=== PATIENT | female | born 1985 | race Caucasian/White ===

== ENCOUNTER 2019-03-05 16:23 | Emergency (ER) | payer SELFPAY ==
[2019-03-05 16:34] VITALS: BP 104/74
[2019-03-05] MEDS ORDERED: IV NORMAL SALINE 1,000ML 1,000 ML IV ONE (16:45)
--- NOTE | 2019-03-05 16:57 | PHYS DOC ---
Past History Past Medical History: Anxiety, Migraines, Pancreatitis Past Surgical History: Appendectomy, Cholecystectomy, , Hysterectomy, Other Additional Past Surgical Histo: uterine ablation Smoking: Non-smoker Alcohol Use: None Drug Use: None Adult General Chief Complaint Chief Complaint: ABDOMINAL PAIN HPI HPI Pt is a 33 y/o female with a history of cholecystectomy, appendectomy, and pancreatitis who presents to the ED with mid abdominal pain that radiates to her back. She describes the pain as a knife stabbing pain and similar to her previous pancreatitis episodes. Associated nausea. Denies vomiting and diarrhea. Denies any alcohol use. Review of Systems Review of Systems Constitutional: Denies fever or chills Respiratory: Denies cough or shortness of breath Cardiovascular: Denies chest pain or palpitations GI: Reports abdominal pain and nausea, denies vomiting : Denies dysuria or hematuria Musculoskeletal: Denies back pain or joint pain Integument: Denies rash or skin lesions Complete systems were reviewed and found to be within normal limits, except as documented in this note. Current Medications Current Medications Current Medications Medications (Trade) Dose Ordered Sig/Hola Start Time Stop Time Status Last Admin Dose Admin Famotidine (Pepcid Vial) 20 mg 1X ONCE 03/05/19 17:00 03/05/19 17:01 Ketorolac Tromethamine (Toradol 15mg Vial) 15 mg 1X ONCE 03/05/19 16:45 03/05/19 16:46 UNV Ondansetron HCl (Zofran) 4 mg 1X ONCE 03/05/19 17:00 03/05/19 17:01 Sodium Chloride 1,000 ml @ 1,000 mls/hr 1X ONCE 03/05/19 16:45 03/05/19 17:44 Allergies Allergies Allergies Coded Allergies Type Severity Reaction Last Updated Verified No Known Drug Allergies 03/05/19 No Physical Exam Physical Exam Constitutional: Well developed, well nourished, mild acute distress, non-toxic appearance HENT: Normocephalic, atraumatic, oropharynx moist Cardiovascular: Heart rate normal, regular rhythm Lungs & Thorax: Bilateral breath sounds clear to auscultation, no wheezing Abdomen: tenderness to palpation on epigastric region Skin: Warm, dry, no erythema, no rash Back: No tenderness, no CVA tenderness Extremities: No tenderness, ROM intact, no edema Neurologic: Alert and oriented X 3, normal motor function, normal sensory function, no focal deficits noted Psychologic: Affect normal, judgement normal, mood normal Current Patient Data Vital Signs Vital Signs Date Time Temp Pulse Resp B/P (MAP) Pulse Ox O2 Delivery O2 Flow Rate FiO2 03/05/19 16:34 97.8 66 18 100 Room Air EKG EKG [] Radiology/Procedures Radiology/Procedures [] Dragon Disclaimer Dragon Disclaimer This electronic medical record was generated, in whole or in part, using a voice recognition dictation system. Departure Departure: Impression: Primary Impression: Abdominal pain Additional Impression: Hernia Disposition: HOME, SELF-CARE Condition: STABLE Referrals: PCP,NAHOMI (PCP) NAEEM HULL MD, THOMAS W MD Patient Instructions: Abdominal Pain (Nonspecific), Hernia, Myax-xn-Wclp Scripts Hydrocodone Bit/Acetaminophen (NORCO 5-325 TABLET) 1 Each Tablet 0.5-1 TAB PO Q6HRS PRN for PAIN, #8 TAB Prov: MICHAEL WAYNE DO 03/05/19 Hyoscyamine Sulfate (LEVSIN-SL) 0.125 Mg Tab.subl 0.125 MG SL Q6HRS PRN for PAIN, #14 TAB Prov: MICHAEL WAYNE DO 03/05/19 Famotidine (PEPCID) 20 Mg Tablet 1 TAB PO BID PRN for PAIN, #20 TAB Prov: MICHAEL WAYNE DO 03/05/19 Ondansetron (ONDANSETRON ODT) 4 Mg Tab.rapdis 1 TAB PO PRN Q6-8HRS PRN for NAUSEA, #16 TAB Prov: MICHAEL WAYNE DO 03/05/19 Problem Qualifiers Primary Impression: Abdominal pain Abdominal location: upper abdomen, unspecified Qualified Codes: R10.10 - Upper abdominal pain, unspecified MICHAEL WAYNE DO Mar 05, 2019 16:57
[2019-03-05] MEDS ORDERED: ONDANSETRON PF 4 MG/2 ML VIAL. IVP ONE (17:00)
[2019-03-05] MEDS ORDERED: KETOROLAC 15 MG/ML VIAL. IVP ONE (17:00)
[2019-03-05] MEDS ORDERED: FAMOTIDINE 20 MG/2 ML VIAL IVP ONE (17:00)
[2019-03-05 17:40] LABS: BASO % 0 % (0-3); EOS # 0.2 x10^3/uL (0.0-0.7); EOS % 3 % (0-3); HEMATOCRIT 43.1 % (36.0-47.0); HEMOGLOBIN 14.3 g/dL (12.0-15.5); LYMPH # 2.2 x10^3/uL (1.0-4.8); LYMPH % 35 % (24-48); MEAN CORPUSCULAR HEMOGLOBIN 31 pg (25-35); MEAN CORPUSCULAR HGB CONC 33 g/dL (31-37); MEAN CORPUSCULAR VOLUME 93 fL (79-100); MONO # 0.3 x10^3/uL (0.0-1.1); MONO % 5 % (0-9); NEUT # 3.7 x10^3uL (1.8-7.7); NEUT % 57 % (31-73); PLATELET COUNT 261 x10^3/uL (140-400); RED BLOOD COUNT 4.63 x10^6/uL (3.50-5.40); WHITE BLOOD COUNT 6.4 x10^3/uL (4.0-11.0)
[2019-03-05 17:47] LABS: BARBITURATES NEG (NEG); BENZODIAZEPINES NEG (NEG); CANNABINOIDS NEG (NEG); COCAINE NEG (NEG); METHADONE NEG (NEG); OPIATES NEG (NEG); PHENCYCLIDINE NEG (NEG)
[2019-03-05 17:48] LABS: AMPHETAMINE/METHAMPHETAMINE NEG (NEG)
[2019-03-05 17:53] LABS: ALBUMIN/GLOBULIN RATIO 1.4 (1.0-1.7); CALCIUM 8.5 mg/dL (8.5-10.1); GFR 63.1; POTASSIUM 3.5 mmol/L (3.5-5.1); TOTAL BILIRUBIN 0.4 mg/dL (0.2-1.0); TOTAL PROTEIN 6.9 g/dL (6.4-8.2)
[2019-03-05 17:58] LABS: BACTERIA,URINE FEW /HPF (0-FEW); BILIRUBIN,URINE NEG (NEG); CLARITY,URINE CLEAR; COLOR,URINE YELLOW; GLUCOSE,URINE NEG (NEG); NITRITE,URINE NEG (NEG); RBC,URINE 0 /HPF (0-2); SQUAMOUS EPITHELIAL CELL,UR OCC /LPF; UROBILINOGEN,URINE 0.2 mg/dL (0.2 mg/dL)
--- NOTE | 2019-03-05 18:04 | RAD ---
Study: CT abdomen and pelvis without contrast Indication: Left upper quadrant pain. Nausea and vomiting. Comparison: 08/08/2017 Technique: Helical CT imaging performed of the abdomen and pelvis without the use of intravenous contrast. Sagittal and coronal reformats were obtained. One or more of the following individualized dose reduction techniques were utilized for this examination: 1. Automated exposure control 2. Adjustment of the mA and/or kV according to patient size 3. Use of iterative reconstruction technique. Findings: Unremarkable lower lungs and visualized heart. No abnormality of the liver, spleen, pancreas, adrenal glands or kidneys. The gallbladder is surgically absent. Small splenule seen medially on image 18 series 2. Mildly distended urinary bladder. Unremarkable uterus and adnexa given patient age. No pericolonic inflammation. Newly seen dense focus of mineralization anterior to the lower aspect of the descending colon, image 83 series 2. Mild volume well-formed stool burden. The appendix is normal. Nonobstructed small bowel. Unremarkable stomach. Increase in size of a ventral midline pelvic hernia which contains fat. This is seen on image 110 series 2 and image 57 series 4. Slightly more pronounced fatty reticulation within the hernia sac however there are no surrounding inflammatory changes or fluid within the sac. Redemonstrated fat-containing umbilical hernia without complicating features. No acute osseous abnormality. Redemonstrated straightening of lumbar lordosis with mild reversal at L1-L2 and mild sigmoid curvature of the visualized thoracolumbar spine. Impression: 1. No acute abnormality seen throughout the abdomen or pelvis to account for the patient's symptoms. 2. Interval mild increase in size of a fat-containing ventral midline pelvic hernia as well as with slightly more pronounced central fatty reticulation however there are no surrounding inflammatory changes or fluid within the hernia sac to suggest incarceration. Recommend correlation for pinpoint tenderness in this region (image 110 series 2). No complicating features associated with a small umbilical hernia that contains fat as well. Electronically signed by: EDUARD OLEARY MD (03/05/2019 6:01 PM) [facility]
[2019-03-05] MEDS ORDERED: HYDR-3165 PO (18:34)
[2019-03-05] MEDS ORDERED: FAMO-63 PO (18:34)
[2019-03-05] MEDS ORDERED: HYOS0.1265 SL (18:34)
[2019-03-05] MEDS ORDERED: ONDA4TAB12 PO (18:34)
== END 2019-03-05 18:40 | disposition home or self-care (01) ==
LOC: ER 16:23
DX: K43.9 Ventral hernia without obstruction or gangrene (principal); G43.909 Migraine, unspecified, not intractable, without status migrainosus; F41.9 Anxiety disorder, unspecified; Z90.49 Acquired absence of other specified parts of digestive tract; Z90.89 Acquired absence of other organs; Z98.890 Other specified postprocedural states; Z90.710 Acquired absence of both cervix and uterus
CPT/HCPCS: 36415; 74176; 80053; 80307; 81001; 81025; 83605; 83690; 83735; 85025; 87086; 96374; 96375; 99285; G0480; J1885; J2405; J3490; J7030

== ENCOUNTER 2019-04-11 19:35 | Emergency (ER) | payer SELFPAY ==
[~2019-04-11] VITALS: Ht 165.1 cm; Wt 73.9 kg
[~2019-04-11 19:35] MED LIST: FAMO-63 PO; HYDR-3165 PO; HYOS0.1265 SL; ONDA4TAB12 PO
[2019-04-11] MEDS ORDERED: MORPHINE SULFATE 2 MG/ML DISP.SYRIN. ONE (20:09)
--- NOTE | 2019-04-11 20:09 | PHYS DOC ---
Past History Past Medical History: Anxiety, Migraines, Pancreatitis Past Surgical History: Appendectomy, Cholecystectomy, , Hysterectomy, Other Additional Past Surgical Histo: uterine ablation Smoking: Non-smoker Alcohol Use: None Drug Use: None Adult General Chief Complaint Chief Complaint: ABDOMINAL PAIN [facility] 33-year-old female presents with sudden onset right lower quadrant pain. This started 2 hours ago. It is a moderate to extreme level. The deep cramping that radiates through to her back. She was not doing anything unusual when it started. She was at work but not doing anything strenuous. She has not had pain like this before. Her only abdominal surgery is cholecystectomy. She still has her appendix. She denies fever or chills. She denies dysuria or increased urinary frequency. Review of Systems Review of Systems Constitutional: Denies fever or chills [] Eyes: Denies change in visual acuity, redness, or eye pain [] HENT: Denies nasal congestion or sore throat [] Respiratory: Denies cough or shortness of breath [] Cardiovascular: No additional information not addressed in HPI [] GI: RLQ abdominal pain, nausea. Denies vomiting, bloody stools or diarrhea [] : Denies dysuria or hematuria [] Musculoskeletal: Denies back pain or joint pain [] Integument: Denies rash or skin lesions [] Neurologic: Denies headache, focal weakness or sensory changes [] Endocrine: Denies polyuria or polydipsia [] All other systems were reviewed and found to be within normal limits, except as documented in this note. Allergies Allergies Allergies Coded Allergies Type Severity Reaction Last Updated Verified No Known Drug Allergies 03/05/19 No Physical Exam Physical Exam Constitutional: Well developed, well nourished, no acute distress, non-toxic appearance. [] HENT: Normocephalic, atraumatic, bilateral external ears normal, oropharynx moist, no oral exudates, nose normal. [] Eyes: PERRLA, EOMI, conjunctiva normal, no discharge. [] Neck: Normal range of motion, no tenderness, supple, no stridor. [] Cardiovascular:Heart rate regular rhythm, no murmur [] Lungs & Thorax: Bilateral breath sounds clear to auscultation [] Abdomen: Bowel sounds normal, soft, RLQ tenderness without rebound or guarding, no masses, no pulsatile masses. [] Skin: Warm, dry, no erythema, no rash. [] Back: No tenderness, no CVA tenderness. [] Extremities: No tenderness, no cyanosis, no clubbing, ROM intact, no edema. [] Neurologic: Alert and oriented X 3, normal motor function, normal sensory function, no focal deficits noted. [] Psychologic: Affect normal, judgement normal, mood normal. [] Current Patient Data Vital Signs Vital Signs Date Time Temp Pulse Resp B/P (MAP) Pulse Ox O2 Delivery O2 Flow Rate FiO2 04/11/19 19:40 97.9 78 20 100 Room Air EKG EKG [] Radiology/Procedures Radiology/Procedures [] Impressions: Examination: CT ABD PELV W/ IV CONTRST ONLY History: Sudden onset of right lower quadrant pain Comparison/Correlation: 03/05/2019 CT abdomen and pelvis without contrast Findings: Axial images of the abdomen and pelvis were obtained following IV contrast. Sagittal and coronal reformatted images were provided. Visualized lung bases are clear. Cholecystectomy noted. Spleen is unremarkable. Pancreas is normal. Adrenal glands are unremarkable. Kidneys are unremarkable. Moderate quantity of stool in the colon. Small umbilical hernia contains omental fat. No enlarged abdominal or pelvic lymph nodes. No ascites. Small amount of pelvic free fluid is present. Left adnexal follicle with rim enhancement is present. Infraumbilical ventral 1.1 cm transverse diameter hernia defect containing omental fat is present. Levo convexity of the thoracolumbar spine is present. Bony structures are otherwise unremarkable. Impression: Pelvic free fluid. Left adnexal rim-enhancing follicle likely representing an involuting cyst. No suspicious bony process about the cecum although evaluation may be limited due to limited mesenteric fat. Small umbilical hernia. Ventral hernia at the lower pelvic level. PQRS Compliance Statement: One or more of the following individualized dose reduction techniques were utilized for this examination: 1. Automated exposure control 2. Adjustment of the mA and/or kV according to patient size 3. Use of iterative reconstruction technique Electronically signed by: Iesha Brooks MD (04/11/2019 10:40 PM) [facility] DICTATED AND SIGNED BY: IESHA BROOKS MD DATE: 04/11/19 1158 CC: SHELBY JIANG DO; PCP,NO ~ Course & Med Decision Making Course & Med Decision Making Pertinent Labs and Imaging studies reviewed. (See chart for details) Patient's labs are unremarkable. Her urinalysis is negative for acute findings. Her CT scan does show free fluid in the pelvis and a likely cyst. She has a ruptured ovarian cyst that is causing her pain. She has required morphine and Dilaudid for pain. I will order an ultrasound of her ovary to rule out torsion. The patient ultrasound is negative for ovarian torsion. It again demonstrates a collapsing cyst. This does seem to be the source of the patient's pain. I will discharge her on [place] 7.5 given her level of pain. Review of the drug database shows that the patient has been on narcotic pain medications as recently as one month ago and was on medication for a few months earlier this year. She is stable for discharge at this time. [] Dragon Disclaimer Dragon Disclaimer This electronic medical record was generated, in whole or in part, using a voice recognition dictation system. Departure Departure: Impression: Primary Impression: Ovarian cyst rupture Disposition: HOME, SELF-CARE Condition: STABLE Referrals: PCP,NAHOMI (PCP) Patient Instructions: Ovarian Cyst, Ecob-wy-Mlgu Scripts Hydrocodone Bit/Acetaminophen (NORCO 7.5-325 TABLET) 1 Each Tablet 1 TAB PO PRN Q6HRS PRN for PAIN, #10 TAB 0 Refills Prov: SHELBY JIANG DO 04/12/19 SHELBY JIANG DO Apr 11, 2019 20:09
[2019-04-11] MEDS ORDERED: ONDANSETRON PF 4 MG/2 ML VIAL. IVP ONE (20:15)
[2019-04-11] MEDS ORDERED: IV NORMAL SALINE 1,000ML 1,000 ML IV ONE (20:15)
[2019-04-11] MEDS ORDERED: MORPHINE SULFATE 2 MG/ML DISP.SYRIN. IV ONE (20:15)
[2019-04-11 20:55] LABS: BASO % 0 % (0-3); EOS # 0.1 x10^3/uL (0.0-0.7); EOS % 2 % (0-3); HEMATOCRIT 41.9 % (36.0-47.0); HEMOGLOBIN 14.3 g/dL (12.0-15.5); LYMPH # 3.3 x10^3/uL (1.0-4.8); LYMPH % 45 % (24-48); MEAN CORPUSCULAR HEMOGLOBIN 31 pg (25-35); MEAN CORPUSCULAR HGB CONC 34 g/dL (31-37); MEAN CORPUSCULAR VOLUME 90 fL (79-100); MONO # 0.5 x10^3/uL (0.0-1.1); MONO % 6 % (0-9); NEUT # 3.4 x10^3uL (1.8-7.7); NEUT % 47 % (31-73); PLATELET COUNT 244 x10^3/uL (140-400); RED BLOOD COUNT 4.68 x10^6/uL (3.50-5.40); WHITE BLOOD COUNT 7.3 x10^3/uL (4.0-11.0)
[2019-04-11 21:08] LABS: CALCIUM 8.4 mg/dL (8.5-10.1); CREATININE 1.1 mg/dL (0.6-1.0); GFR 56.5; POTASSIUM 3.4 mmol/L (3.5-5.1)
[2019-04-11 21:08] LABS: AMORPHOUS SEDIMENT,UR PRESENT /HPF; BACTERIA,URINE FEW /HPF (0-FEW); BILIRUBIN,URINE NEG (NEG); CLARITY,URINE CLOUDY; COLOR,URINE YELLOW; GLUCOSE,URINE NEG (NEG); NITRITE,URINE NEG (NEG); RBC,URINE OCC /HPF (0-2); SQUAMOUS EPITHELIAL CELL,UR MOD /LPF; UROBILINOGEN,URINE 0.2 mg/dL (0.2 mg/dL)
[2019-04-11 21:14] LABS: ALBUMIN 3.8 g/dL (3.4-5.0); ALBUMIN/GLOBULIN RATIO 1.3 (1.0-1.7); TOTAL BILIRUBIN 0.3 mg/dL (0.2-1.0); TOTAL PROTEIN 6.8 g/dL (6.4-8.2)
[2019-04-11] MEDS ORDERED: IOHEXOL 300 MG/ML 75 ML VIAL. IV ONE (21:15)
[2019-04-11] MEDS ORDERED: CONTRAST GIVEN MC PRN (21:15)
[2019-04-11] MEDS ORDERED: MORPHINE SULFATE 4 MG/ML DISP.SYRIN. IV ONE (22:00)
--- NOTE | 2019-04-11 22:43 | RAD ---
Examination: CT ABD PELV W/ IV CONTRST ONLY History: Sudden onset of right lower quadrant pain Comparison/Correlation: 03/05/2019 CT abdomen and pelvis without contrast Findings: Axial images of the abdomen and pelvis were obtained following IV contrast. Sagittal and coronal reformatted images were provided. Visualized lung bases are clear. Cholecystectomy noted. Spleen is unremarkable. Pancreas is normal. Adrenal glands are unremarkable. Kidneys are unremarkable. Moderate quantity of stool in the colon. Small umbilical hernia contains omental fat. No enlarged abdominal or pelvic lymph nodes. No ascites. Small amount of pelvic free fluid is present. Left adnexal follicle with rim enhancement is present. Infraumbilical ventral 1.1 cm transverse diameter hernia defect containing omental fat is present. Levo convexity of the thoracolumbar spine is present. Bony structures are otherwise unremarkable. Impression: Pelvic free fluid. Left adnexal rim-enhancing follicle likely representing an involuting cyst. No suspicious bony process about the cecum although evaluation may be limited due to limited mesenteric fat. Small umbilical hernia. Ventral hernia at the lower pelvic level. PQRS Compliance Statement: One or more of the following individualized dose reduction techniques were utilized for this examination: 1. Automated exposure control 2. Adjustment of the mA and/or kV according to patient size 3. Use of iterative reconstruction technique Electronically signed by: Pablo Sánchez MD (04/11/2019 10:40 PM) [facility]
[2019-04-11] MEDS ORDERED: HYDROmorphone PF 1 MG/ML DISP.SYRIN IV ONE ×2 (23:00→23:30)
[2019-04-11 23:13] VITALS: BP 126/70
[2019-04-12] MEDS ORDERED: diphenhydrAMINE 50 MG/ML VIAL IVP ONE (00:30)
[2019-04-12] MEDS ORDERED: diphenhydrAMINE 50 MG/ML VIAL ONE (00:32)
[2019-04-12] MEDS ORDERED: HYDR-3166 PO (00:34)
--- NOTE | 2019-04-12 00:44 | RAD ---
Exam: Ultrasound pelvis Indication: Right lower quadrant pain for several hours Technique: Real-time grayscale and color Doppler images of the bowel were obtained by the department forest fire warden. Comparisons: CT same day FINDINGS: Uterus measures 7.7 x 5.2 x 3.1 cm. Endometrium measures 3 mm in thickness. Right ovary measures 2.6 x 2.3 x 1.5 cm. Left ovary measures 3.2 x 2.5 x 2.6 cm. Involuting cyst within the right ovary measuring up to 1.4 cm. Vascular flow is noted within the ovaries bilaterally. Small amount of free fluid noted within the cul-de-sac. IMPRESSION: 1. Vascular flow within the ovaries bilaterally. No evidence for ovarian torsion. 2. Likely involuting cyst in the left ovary. 3. Small amount of free fluid in the pelvis, may be physiologic. 4. Normal sonographic appearance of the uterus. Electronically signed by: Raphael Reed MD (04/12/2019 12:41 AM) [id number]
[2019-04-12] MEDS ORDERED: HYDROcodone/APAP 10/325 1 TAB TABLET PO ONE (00:45)
== END 2019-04-12 00:45 | disposition home or self-care (01) ==
LOC: ER 19:35
DX: N83.202 Unspecified ovarian cyst, left side (principal); G43.909 Migraine, unspecified, not intractable, without status migrainosus; Z90.89 Acquired absence of other organs; Z90.49 Acquired absence of other specified parts of digestive tract; Z90.710 Acquired absence of both cervix and uterus; Z98.890 Other specified postprocedural states
CPT/HCPCS: 36415; 74177; 76830; 76856; 80053; 81001; 85025; 96374; 96375; 96376; 99285; J1170; J1200; J2270; Q9967; J7030